=== PATIENT | male | born 1940 | race Caucasian/White ===

== ENCOUNTER 2019-11-03 06:31 | Day surgery (SDC) | payer MEDICARE ==
[~2019-11-03] VITALS: Ht 162.6 cm; Wt 103.9 kg
[2019-11-03 08:05] VITALS: BP 151/64
[2019-11-03] MEDS ORDERED: GLIP10TA11 PO (08:09)
[2019-11-03] MEDS ORDERED: CYAN1TAB16 PO (08:09)
[2019-11-03] MEDS ORDERED: TERA2CAP4 PO (08:09)
[2019-11-03] MEDS ORDERED: ASPI-1265 PO (08:09)
[2019-11-03] MEDS ORDERED: METH-360 PO (08:09)
[2019-11-03] MEDS ORDERED: FURO40TA4 PO (08:09)
[2019-11-03] MEDS ORDERED: LINA5TAB4 PO (08:09)
[2019-11-03] MEDS ORDERED: midazolam 2 mg/2 ml injection ONE ×3 (08:42→10:17)
[2019-11-03] MEDS ORDERED: LIDOcaine 1%/PF 5ML 10 MG/ML VIAL ONE (08:42)
[2019-11-03] MEDS ORDERED: heparin 1,000 UNITS/NS 500ml 500 ML ONE ×2 (08:43→10:26)
[2019-11-03] MEDS ORDERED: fentaNYL/PF 50MCG/1 ML 2ML syringe ONE (08:43)
[2019-11-03] MEDS ORDERED: iohexol 300mg/ml 100ml inj. ONE ×2 (08:43→10:25)
[2019-11-03] MEDS ORDERED: normal saline 1000ml 1,000 ML IV SCH (08:45)
[2019-11-03] MEDS ORDERED: tPA-cathflo 2 MG/2 ml IV flush ONE (09:22)
[2019-11-03 11:00] VITALS: BP 146/74
[2019-11-03 11:15] VITALS: BP 180/67
--- NOTE | 2019-11-03 11:25 | NUR ---
Called [facility] in [place] to get pt in for HD tomorrow, 11/03. Awaiting return phone call re appt.
[2019-11-03 11:30] VITALS: BP 151/79
[2019-11-03 11:45] VITALS: BP 135/69
[2019-11-03 12:00] VITALS: BP 158/29
== END 2019-11-03 12:15 | disposition home or self-care (01) ==
LOC: SSTAY O 06:31
PROVIDERS: ATTEND Radiology Diagnostic Radiology
DX: T82.868A Thrombosis due to vascular prosthetic devices, implants and grafts, initial encounter (principal); E11.22 Type 2 diabetes mellitus with diabetic chronic kidney disease; I12.9 Hypertensive chronic kidney disease with stage 1 through stage 4 chronic kidney disease, or unspecified chronic kidney disease; N18.9 Chronic kidney disease, unspecified; Z99.2 Dependence on renal dialysis; Z98.890 Other specified postprocedural states; Z79.899 Other long term (current) drug therapy; Z11.59 Encounter for screening for other viral diseases
CPT/HCPCS: 36905; 82948; 87635; 99152; 99153; C1725; C1769; C1894; J1644; J2250; J2997; J3010; Q9967

== ENCOUNTER 2020-01-31 11:11 | Day surgery (SDC) | payer MEDICARE ==
[2020-01-30 13:59] LABS: BASOPHILS % (AUTO) 0.5 % (0-1); EOSINOPHILS # (AUTO) 0.2 X10'3 (0-0.9); EOSINOPHILS % (AUTO) 2.5 % (0-6); HEMATOCRIT 37.2 % (42.0-52.0); HEMOGLOBIN 12.6 g/dl (14.0-17.9); LYMPHOCYTES # (AUTO) 0.8 X10'3 (1.1-4.8); LYMPHOCYTES % (AUTO) 11.8 % (21-51); MEAN CORPUSCULAR HEMOGLOBIN 33.5 PG (27.0-31.0); MEAN CORPUSCULAR HGB CONC 33.8 g/dL (33.0-36.5); MEAN CORPUSCULAR VOLUME 99.3 FL (78-98); MEAN PLATELET VOLUME 7.5 FL (7.4-10.4); MONOCYTES # (AUTO) 0.5 X10'3 (0-0.9); NEUTROPHILS % (AUTO) 77.2 % (42-75); PLATELET COUNT 253 X10'3 (140-440); RED BLOOD COUNT 3.74 X10'6 (4.70-6.10); RED CELL DISTRIBUTION WIDTH 15.2 % (11.5-14.5); WHITE BLOOD COUNT 6.5 X10'3 (4.5-11.0)
[2020-01-30 14:02] LABS: ANION GAP 6 (8-16); BLOOD UREA NITROGEN 44 MG/DL (7-18); CALCIUM 9.1 MG/DL (8.5-10.1); CHLORIDE 99 MMOL/L (99-107); CREATININE 7.34 MG/DL (0.60-1.10); GLUCOSE 259 MG/DL (70-104); POTASSIUM 5.6 MMOL/L (3.5-5.1); SODIUM 138 MMOL/L (135-145); TOTAL CARBON DIOXIDE 32.7 MMOL/L (24-32); eGFR 7 ML/MIN
[2020-01-30 14:05] LABS: PARTIAL THROMBOPLASTIN TIME 26 SECONDS (22-32)
[~2020-01-31] VITALS: Ht 162.6 cm; Wt 99.6 kg
[2020-01-31] VITALS (10 sets, daily range): BP systolic 110–179; BP diastolic 64–87
[~2020-01-31 11:11] MED LIST: ASPI-1265 PO; CYAN1TAB16 PO; FURO40TA4 PO; GLIP10TA11 PO; LINA5TAB4 PO; METH-360 PO; TERA2CAP4 PO
[2020-01-31] MEDS ORDERED: ceFAZolin 2gm in dextrose, iso 50 ML IV ONE (11:25)
[2020-01-31] MEDS ORDERED: normal saline 1000ml 1,000 ML IV SCH (11:25)
[2020-01-31] MEDS ORDERED: SEVE800T8 PO (11:36)
[2020-01-31] MEDS ORDERED: LOSA25TA96 PO (11:36)
[2020-01-31] MEDS ORDERED: ATOR20TA PO (11:37)
[2020-01-31] MEDS ORDERED: LANT750T3 PO (11:39)
[2020-01-31] MEDS ORDERED: ASCO-283 PO (11:39)
[2020-01-31] MEDS ORDERED: fentaNYL/PF 50MCG/1 ML 2ML syringe ONE (11:55)
[2020-01-31] MEDS ORDERED: ceFAZolin 1000mg inj ONE (11:56)
[2020-01-31] MEDS ORDERED: LIDOcaine 1% W/epiNEPHrine 1:100,000 20ml vial ONE (11:56)
[2020-01-31] MEDS ORDERED: midazolam 2 mg/2 ml injection ONE (11:56)
[2020-01-31] MEDS ORDERED: vancomycin/NS 1 GM ADD-VANTAGE 250 ML IV ONE (12:00)
[2020-01-31] MEDS ORDERED: HYDROcodone/acetaminophen 10/325mg tab PO PRN (14:30)
[2020-01-31] MEDS ORDERED: HYDROcodone/acetaminophen 5mg/325mg tablet PO PRN (14:30)
--- NOTE | 2020-01-31 14:45 | NUR ---
ancef and vanco given in laboratory chemist, vanco empty when arrived back in short stay
[2020-01-31] MEDS ORDERED: ceFAZolin 1GM/D5W- ADD-VANTAGE 50 ML IV SCH (21:00)
== END 2020-01-31 19:00 | disposition home or self-care (01) ==
LOC: SSTAY O 11:11
PROVIDERS: ATTEND Internal Medicine Cardiovascular Disease
DX: I49.5 Sick sinus syndrome (principal); I47.1 Supraventricular tachycardia; E11.22 Type 2 diabetes mellitus with diabetic chronic kidney disease; I12.0 Hypertensive chronic kidney disease with stage 5 chronic kidney disease or end stage renal disease; N18.6 End stage renal disease; E78.5 Hyperlipidemia, unspecified; Z99.2 Dependence on renal dialysis; I25.10 Atherosclerotic heart disease of native coronary artery without angina pectoris; Z79.82 Long term (current) use of aspirin; Z79.899 Other long term (current) drug therapy; Z79.84 Long term (current) use of oral hypoglycemic drugs; Z90.79 Acquired absence of other genital organ(s); Z96.659 Presence of unspecified artificial knee joint; Z98.890 Other specified postprocedural states; Z82.3 Family history of stroke; Z83.3 Family history of diabetes mellitus; Z82.49 Family history of ischemic heart disease and other diseases of the circulatory system
CPT/HCPCS: 33208; 36415; 71046; 80048; 82948; 85025; 85610; 85730; 93005; 99152; 99153; C1785; C1894; C1898; J0690; J2250; J3010; A4565; A4620; A6258; A6449